=== PATIENT | female | born 1945 | race Caucasian/White ===

== ENCOUNTER 2018-10-12 04:10 | Inpatient (IN) ==
[2018-10-12] MEDS ORDERED: HYDROmorphone INJ 0.5 MG/0.5 ML SYR IV STA (04:32)
[2018-10-12 05:00] LABS: Basophils # (auto) 0.01 K/uL (0-0.2); Basophils % (auto) 0.1 %; Eosinophils # (auto) 0.01 K/uL (0-0.5); Eosinophils % (auto) 0.1 %; Hematocrit (blood only) 45.2 % (37-47); Hemoglobin 15.8 g/dL (12.0-16.0); Immature Granulocytes # (auto) 0.06 K/uL (0.00-0.02); Immature Granulocytes % (auto) 0.3 %; Lymphocytes # (auto) 1.69 K/uL (1.2-3.4); Lymphocytes % (auto) 8.8 %; Mean Corpuscular Volume 91.5 fL (80-100); Mean Platelet Volume 10.8 fL (7.4-10.4); Monocytes # (auto) 0.96 K/uL (0.11-0.59); Neutrophils # (auto) 16.43 K/uL (1.4-6.5); Neutrophils % (auto) 85.7 %; Platelet Count 293 K/uL (130-400); RDW Coefficient of Variation 13.2 % (11.5-14.5); Red Blood Count 4.94 M/uL (4.2-5.4); White Blood Count 19.16 K/uL (4.8-10.8)
[2018-10-12 05:11] LABS: Appearance Urine Cloudy (Clear); Bacteria Urine Automated Negative (Negative); Color Urine Dark Yellow; Epithelial Cell Urine Auto >30 /lpf (0-5); Glucose Urine UA Negative (Negative); Ketones Urine Negative (Negative); Leukocyte Esterase Urine Trace (Negative); Nitrite Urine Negative (Negative); Protein Urine 1+ (Negative); Specific Gravity Urine > 1.045 (1.000-1.030); Urobilinogen Urine Negative (Negative)
[2018-10-12 05:17] LABS: Bilirubin Urine Negative (Negative); Ictotest Urine Negative (Negative)
[2018-10-12 05:28] LABS: Albumin Level 4.1 gm/dl (3.4-5.0); BUN Creatinine Ratio 21.3 (10-20); Creatinine Clr Calc Pharmacy 44.4 ml/min; Est GFR (African American) 52.2; Est GFR (Non-African American) 45.1; Potassium 4.7 mmol/L (3.5-5.1)
[2018-10-12] MEDS ORDERED: SODIUM CHLORIDE 0.9% 1000ML 1,000 ML IV SCH (05:30)
[2018-10-12 05:31] LABS: Albumin Globulin Ratio 0.9 (0.9-2); Bilirubin,Total 0.9 mg/dl (0.2-1); Globulin 4.6 gm/dl (2.5-4.0); Total Protein 8.7 gm/dl (6.4-8.2)
[2018-10-12] MEDS ORDERED: fentaNYL citrate 100 MCG/2 ML VIAL IV STA (05:31)
--- NOTE | 2018-10-12 06:15 | History & Physical Report ---
Date of Service October 12, 2018 Assessment & Plan (1) Small bowel obstruction: Recurrent partial small bowel obstruction-- Admit to telemetry due to need for IV Lopressor. NPO. IV fluids NSS at 100 mils per hour. Zofran 4 mg IV every 6 hours as needed. Zosyn 3.375 mg IV every 8 hours. Pantoprazole 40 mg IV daily. Acetaminophen 1000 mg IV every 8 hours as needed mild pain or temperature Morphine sulfate 2 mg IV every 3 hours as needed severe pain Present on Admission?: Yes (2) CAD (coronary artery disease): CAD/hypertension/hypertrophic cardiomyopathy-- Admit to telemetry unit. Lopressor 5 mg IV every 4 hours, hold for heart rate less than 60 or systolic blood pressure less than 120. Hold aspirin, clopidogrel and metoprolol succinate. Present on Admission?: Yes (3) HTN (hypertension): As above Present on Admission?: Yes (4) Hypertrophic cardiomyopathy: Present on Admission?: Yes History of Present Illness Chief Complaint: The patient presents to the emergency department with worsening right lower quadrant abdominal pain over the past 24 hours. Primary Care Provider: Charo Chatterjee PA-C The patient is a 73-year-old female with a past medical history including recurrent partial small bowel obstructions, with most recent admission at [facility] from August 04 - August 05, resolved spontaneously with conservative treatment. These symptoms began yesterday morning upon awakening. She tried to restrict her oral intake significantly to both liquids and solids, however, overnight tonight, her symptoms worsened, and she presented to the emergency department for assessment. Allergies Allergy/AdvReac Type Severity Reaction Status Date / Time codeine AdvReac Mild CHEST Verified 10/12/18 04:52 PRESSURE Home Medications Home Medications Medication Instructions Recorded Confirmed Type allopurinol 100 mg PO DAILY 08/04/18 10/12/18 History aspirin 81 mg PO DAILY 08/04/18 10/12/18 History atorvastatin [Lipitor] 40 mg PO DAILY 08/04/18 10/12/18 History metoprolol succinate 25 mg PO BID 08/04/18 10/12/18 History metoprolol succinate 100 mg PO BID 08/04/18 10/12/18 History multivitamin [Multiple Vitamins] 1 tab PO DAILY 08/04/18 10/12/18 History clopidogrel 75 mg PO QAM #30 tab 08/06/18 10/12/18 Rx diclofenac sodium [Voltaren] 1 applic EXT QID #1 tube 08/06/18 10/12/18 Rx Past Med/Surg History Social History marital status: Current Living Situation: Spouse Feels Safe at Home: Yes Smoking Status: Never smoker Second Hand Exposure: No Hx Alcohol Use: No Hx Substance Use: No Beliefs That Will Affect Care: None Preferred Language: [place] Review of Systems The patient denies chest pain, palpitations, shortness of breath, dyspnea on exertion, cough, lower extremity swelling, sore throat, fevers, chills, sweats, vomiting, diarrhea , constipation, blood in urine or stool, dysuria, urinary frequency or urgency, lightheadedness, dizziness, headache, memory loss, loss of consciousness, rash, abnormal bruising or bleeding, imbalance, focal or generalized weakness, numbness or tingling in arms or legs, generalized arthralgias or myalgias, back or neck pain, or night sweats. The review of systems is otherwise negative other than for that already noted above, and at least 10 systems have been reviewed. Physical Exam 2 Vital Signs (Past 24 Hours): Last Vital Signs Temp 36.4 C L 10/12/18 04:14 Pulse 75 10/12/18 05:44 Resp 16 10/12/18 05:44 BP 113/93 10/12/18 05:44 Pulse Ox 93 10/12/18 05:44 Physical Exam: The patient is awake, alert and oriented �3, normocephalic and atraumatic, lying in bed and in mild distress secondary to right lower quadrant pain. HEENT--PERRL, EOMI, mucous membranes and oropharynx dry. Neck--supple. No JVD. No bruits. Thyroid normal, trachea midline, no adenopathy. Heart--normal S1 and S2. No murmurs, rubs or gallops. Lungs--clear bilaterally, no respiratory distress, no accessory muscle use. Abdomen--decreased bowel sounds. Mildly distended. Tender right lower and right lateral quadrants. Extremities--no cyanosis or clubbing. No edema. There are good distal pulses b/ l. Dermatologic--normal skin turgor, normal color, no abnormal lymph nodes, no rash. Neurologic--cranial nerves II through XII grossly intact. Rheumatologic--normal range of motion. Psychiatric--normal affect. Results & Data Laboratory Results Laboratory Results WBC 19.16 K/uL (4.8-10.8) H 10/12/18 04:50 RBC 4.94 M/uL (4.2-5.4) 10/12/18 04:50 Hgb 15.8 g/dL (12.0-16.0) 10/12/18 04:50 Hct 45.2 % (37-47) 10/12/18 04:50 MCV 91.5 fL (80-100) 10/12/18 04:50 MCH 32.0 pg (25-34) 10/12/18 04:50 MCHC 35.0 g/dL (32-36) 10/12/18 04:50 RDW Std Deviation 44.0 fL (36.4-46.3) 10/12/18 04:50 RDW Coeff of Saundra 13.2 % (11.5-14.5) 10/12/18 04:50 Plt Count 293 K/uL (130-400) 10/12/18 04:50 MPV 10.8 fL (7.4-10.4) H 10/12/18 04:50 Immature Gran % (Auto) 0.3 % 10/12/18 04:50 Neut % (Auto) 85.7 % 10/12/18 04:50 Lymph % (Auto) 8.8 % 10/12/18 04:50 [place] % (Auto) 5.0 % 10/12/18 04:50 Eos % (Auto) 0.1 % 10/12/18 04:50 Baso % (Auto) 0.1 % 10/12/18 04:50 Immature Gran # (Auto) 0.06 K/uL (0.00-0.02) H 10/12/18 04:50 Neut # (Auto) 16.43 K/uL (1.4-6.5) H 10/12/18 04:50 Lymph # (Auto) 1.69 K/uL (1.2-3.4) 10/12/18 04:50 [place] # (Auto) 0.96 K/uL (0.11-0.59) H 10/12/18 04:50 Eos # (Auto) 0.01 K/uL (0-0.5) 10/12/18 04:50 Baso # (Auto) 0.01 K/uL (0-0.2) 10/12/18 04:50 Sodium 135 mmol/L (136-145) L 10/12/18 04:50 Potassium 4.7 mmol/L (3.5-5.1) 10/12/18 04:50 Chloride 99 mmol/L (98-107) 10/12/18 04:50 Carbon Dioxide 26 mmol/L (21-32) 10/12/18 04:50 Anion Gap 10.0 (3-11) 10/12/18 04:50 BUN 25 mg/dl (7-18) H 10/12/18 04:50 Creatinine 1.18 mg/dl (0.6-1.2) 10/12/18 04:50 Est Cr Clr Drug Dosing 44.4 ml/min 10/12/18 04:50 Est GFR ( Amer) 52.2 10/12/18 04:50 Est GFR (Non-Af Amer) 45.1 10/12/18 04:50 BUN/Creatinine Ratio 21.3 (10-20) H 10/12/18 04:50 Glucose 133 mg/dl (70-99) H 10/12/18 04:50 Calcium 10.0 mg/dl (8.5-10.1) 10/12/18 04:50 Total Bilirubin 0.9 mg/dl (0.2-1) 10/12/18 04:50 AST 23 U/L (15-37) 10/12/18 04:50 ALT 29 U/L (12-78) 10/12/18 04:50 Alkaline Phosphatase 91 U/L (45-117) 10/12/18 04:50 Total Protein 8.7 gm/dl (6.4-8.2) H 10/12/18 04:50 Albumin 4.1 gm/dl (3.4-5.0) 10/12/18 04:50 Globulin 4.6 gm/dl (2.5-4.0) H 10/12/18 04:50 Albumin/Globulin Ratio 0.9 (0.9-2) 10/12/18 04:50 Lipase 156 U/L (73-393) 10/12/18 04:50 Urine Color Dark Yellow 10/12/18 05:03 Urine Appearance Cloudy (Clear) H 10/12/18 05:03 Urine pH 5.0 (4.5-7.5) 10/12/18 05:03 Ur Specific [place] > 1.045 (1.000-1.030) H 10/12/18 05:03 Urine Protein 1+ (Negative) H 10/12/18 05:03 Urine Glucose (UA) Negative (Negative) 10/12/18 05:03 Urine Ketones Negative (Negative) 10/12/18 05:03 Urine Blood Negative (Negative) 10/12/18 05:03 Urine Nitrite Negative (Negative) 10/12/18 05:03 Urine Bilirubin Negative (Negative) 10/12/18 05:03 Urine Urobilinogen Negative (Negative) 10/12/18 05:03 Ur Leukocyte Esterase Trace (Negative) H 10/12/18 05:03 Urine WBC (Auto) 10-30 /hpf (0-5) H 10/12/18 05:03 Urine RBC (Auto) 0-4 /hpf (0-4) 10/12/18 05:03 U Hyaline Cast (Auto) 10-30 /lpf (0-5) H 10/12/18 05:03 U Epithel Cells (Auto) >30 /lpf (0-5) H 10/12/18 05:03 Urine Bacteria (Auto) Negative (Negative) 10/12/18 05:03 Diagnostic Findings Portable KUB abdominal flatplate shows changes suggestive of partial small bowel obstruction. Code Status & VTE Plan Code Status Full code VTE Prophylaxis Plan VTE Prophylaxis will be ordered: Yes
--- NOTE | 2018-10-12 06:52 | XRay Report ---
XR abdomen 2V w PA chest CLINICAL HISTORY: Abdominal pain. Symptoms of small bowel obstruction. COMPARISON STUDY: CT scan dated 08/03/2018 FINDINGS: The erect chest reveals no free air. There is no focal pulmonary consolidation. There is a left subclavian dual-chamber pacer/defibrillator.] Supine views the abdomen reveal postsurgical lance es are prior cholecystectomy. There are minimally dilated small bowel loops. There are multiple air-f luid levels on the erect study. Nonobstructive bowel gas pattern although not definite is suspected. There is a left upper quadrant eggshell calcification corresponding to a calcified cystic splenic les ion on the prior CT scan. IMPRESSION: Suspected bowel obstruction. Clinical and radiographic follow-up is recommended. No free air identified. Electronically signed by: Andrew Calderon M.D. 10/12/2018 6:50 AM
[2018-10-12] MEDS ORDERED: PIPERACILL/TAZOBAC CONSULT ACTIVE PRN (07:01)
[2018-10-12] MEDS ORDERED: ACETAMINOPHEN 1000 MG/100 ML IV IV PRN (07:01)
[2018-10-12] MEDS ORDERED: MoRPHine SULFATE 2 MG/ML CARP IV PRN (07:01)
[2018-10-12] MEDS ORDERED: PANTOprazole 40 MG in DEXTROSE 5% 100 ML IV SCH (07:01)
[2018-10-12] MEDS ORDERED: PANTOprazole 80 MG in DEXTROSE 5% 100 ML IV ONE (07:01)
--- NOTE | 2018-10-12 07:02 | Emergency Department Note ---
Entered by Alejandro De Luna acting as a scribe for History of Present Illness General Chief complaint: Abdominal Pain Stated complaint: STOMACH PAIN Time Seen by Provider: 10/12/18 04:22 Source: patient History of Present Illness Onset (ago): day(s) (yesterday morning) Location: abdomen (right-sided) Pain Consistency: + other (worsening) Maximum Pain Intensity: 8 Associated symptoms: + other (Negative for nausea, vomiting, diarrhea, and difficulty urinating.) The patient is a 73 year old female who presents to the emergency department with complaints of worsening right-sided abdominal pain beginning yesterday morning. The patient states that her pain was not bad when it started yesterday , but she notes that it worsened throughout the day. She denies any nausea, vomiting, diarrhea, and difficulty urinating. She reports that she has a history of bowel obstructions. The patient states that her bowel obstructions have resolved on their own and she notes that she did not require surgery. She notes that she has had part of her colon removed due to diverticulitis. Home Medications Home Medications Medication Instructions Recorded Confirmed Type allopurinol 100 mg PO DAILY 08/04/18 10/12/18 History aspirin 81 mg PO DAILY 08/04/18 10/12/18 History atorvastatin [Lipitor] 40 mg PO DAILY 08/04/18 10/12/18 History metoprolol succinate 25 mg PO BID 08/04/18 10/12/18 History metoprolol succinate 100 mg PO BID 08/04/18 10/12/18 History multivitamin [Multiple Vitamins] 1 tab PO DAILY 08/04/18 10/12/18 History clopidogrel 75 mg PO QAM #30 tab 08/06/18 10/12/18 Rx diclofenac sodium [Voltaren] 1 applic EXT QID #1 tube 08/06/18 10/12/18 Rx Allergies Allergy/AdvReac Type Severity Reaction Status Date / Time codeine AdvReac Mild CHEST Verified 10/12/18 04:52 PRESSURE Past Med/Surg History Social History marital status: Current Living Situation: Spouse Other Information That Helps Us Care for You: No Feels Safe at Home: Yes Safety Concerns: Feels Safe At This Time Smoking Status: Never smoker Do You Dip or Chew Tobacco: No Second Hand Exposure: No Tobacco Cessation Education Requested by Patient: No Hx Alcohol Use: No Hx Substance Use: No Beliefs That Will Affect Care: None Preferred Language: Lao Communication Ability: Effective Program Attendant Required: No Review of Systems See HPI for pertinent positives & negatives. and A total of 10 systems reviewed and were otherwise negative Physical Exam Vital Signs Vital Signs - 24 hr 10/12/18 04:14 10/12/18 04:32 10/12/18 05:44 Temperature 36.4 C L Temperature Source Oral Sepsis Recent Fever Within 48 Hours No Sepsis Action Taken by Nursing No Action Required Pulse Rate 79 75 Pulse Rate [Left Radial] Pulse Rhythm [Left Radial] Pulse Strength [Left Radial] Respiratory Rate 18 16 Respiratory Effort / Characteristics Non-Labored Respiratory Depth Normal Respiratory Pattern Blood Pressure 147/88 H 113/93 Blood Pressure [Right Arm] Blood Pressure Mean 107 99 Blood Pressure Mean [Right Arm] Blood Pressure Position Sitting Blood Pressure Position [Right Arm] Pulse Oximetry 96 96 93 Oxygen Delivery Method Room Air Room Air 10/12/18 06:07 10/12/18 06:11 10/12/18 06:16 Temperature Temperature Source Sepsis Recent Fever Within 48 Hours Sepsis Action Taken by Nursing Pulse Rate 76 71 Pulse Rate [Left Radial] 71 Pulse Rhythm [Left Radial] Regular Pulse Strength [Left Radial] Normal Respiratory Rate 15 16 15 Respiratory Effort / Characteristics Non-Labored Respiratory Depth Normal Respiratory Pattern Regular Blood Pressure 135/89 121/80 Blood Pressure [Right Arm] 135/89 Blood Pressure Mean 104 93 Blood Pressure Mean [Right Arm] 104 Blood Pressure Position Blood Pressure Position [Right Arm] Lying Pulse Oximetry 92 93 91 Oxygen Delivery Method Room Air 10/12/18 06:29 Temperature Temperature Source Sepsis Recent Fever Within 48 Hours Sepsis Action Taken by Nursing Pulse Rate Pulse Rate [Left Radial] Pulse Rhythm [Left Radial] Pulse Strength [Left Radial] Respiratory Rate Respiratory Effort / Characteristics Respiratory Depth Respiratory Pattern Blood Pressure Blood Pressure [Right Arm] Blood Pressure Mean Blood Pressure Mean [Right Arm] Blood Pressure Position Blood Pressure Position [Right Arm] Pulse Oximetry Oxygen Delivery Method Room Air HEENT: Head - normocephalic and atraumatic Pupils are equal, round, and reactive to light. Extraocular eye muscles are intact, and sclera are anicteric. Nose - moist nasal mucosa without discharge. Mouth - moist buccal mucosa. Oropharynx is nonerythematous and there is no tonsillar exudate or edema noted. Neck: Supple; no JVD, nuchal rigidity, cervical lymphadenopathy. Heart: Regular rate and rhythm. There is a normal S1 and S2 with no murmurs, clicks, or gallops appreciated. Lungs: Clear to auscultation bilaterally with no wheezes, rales, or rhonchi. Abdomen: Soft, nondistended, with absent bowel sounds. There are no palpable pulsatile masses or hepatosplenomegaly. There is no guarding, rigidity, or rebound noted. Pain with palpation of right upper and right lower quadrants. Extremities: No evidence of cyanosis, clubbing, or edema. There are easily palpable peripheral pulses. Skin: warm and dry with good turgor and no rashes. Course 0422: The patient was evaluated in room C8. A complete history and physical examination were performed. Nursing notes and previous electronic medical records were reviewed. IV lock was established and labs were drawn as above. The patient will go for an obstruction series. She had an EKG which was unremarkable. 0510: I reevaluated and updated the patient. I ordered Dilaudid for her pain. 0517: The patient is concerned about taking Dilaudid and will receive Fentanyl instead. The patient has a previous allergy to codeine. I reviewed the EMR and the patient has not had any adverse reactions to Fentanyl. 0530: Nss 1000ml 1000 mls @ 125 mls/hr IV 0531: Fentanyl Citrate 50mcg IV 0610: Upon reevaluation, the patient is stable. I discussed the results and treatment plan with the patient. She verbalizes understanding and agreement. I discussed the patient's case with AMANDA Garcia. The patient will be evaluated for further management and care. Consultations Consultation #1: I reviewed the patient's case with AMANDA Garcia. He will evaluate the patient for further management. Time: 05:55 Administered Medications Discontinued Medications Fentanyl Citrate (Fentanyl Citrate) 50 mcg IV NOW STA Stop: 10/12/18 05:32 Last Admin: 10/12/18 05:41 Dose: 50 mcg Hydromorphone HCl (Dilaudid) 0.5 mg IV NOW STA Stop: 10/12/18 04:33 Last Admin: 10/12/18 05:44 Dose: Not Given Medical Decision Making Differential Diagnosis The patient is a 73 year old female who presents to the emergency department with complaints of worsening right-sided abdominal pain beginning yesterday morning. Differential diagnoses include: SBO, diverticulitis, colitis, and cystitis. Medical Records Attestation: I reviewed the patient's medical records. Home Medications Current Medication List: was personally reviewed by me Laboratory Data Attestation: I reviewed the patient's lab results. Result diagrams: 10/12/18 04:50 10/12/18 04:50 Lab Results 10/12/18 10/12/18 10/12/18 Range/Units 04:50 04:50 05:03 WBC 19.16 H (4.8-10.8) K/uL RBC 4.94 (4.2-5.4) M/uL Hgb 15.8 (12.0-16.0) g/dL Hct 45.2 (37-47) % MCV 91.5 (80-100) fL MCH 32.0 (25-34) pg MCHC 35.0 (32-36) g/dL RDW Std Deviation 44.0 (36.4-46.3) fL RDW Coeff of Saundra 13.2 (11.5-14.5) % Plt Count 293 (130-400) K/uL MPV 10.8 H (7.4-10.4) fL Immature Gran % (Auto) 0.3 % Neut % (Auto) 85.7 % Lymph % (Auto) 8.8 % [place] % (Auto) 5.0 % Eos % (Auto) 0.1 % Baso % (Auto) 0.1 % Immature Gran # (Auto) 0.06 H (0.00-0.02) K/uL Neut # (Auto) 16.43 H (1.4-6.5) K/uL Lymph # (Auto) 1.69 (1.2-3.4) K/uL [place] # (Auto) 0.96 H (0.11-0.59) K/uL Eos # (Auto) 0.01 (0-0.5) K/uL Baso # (Auto) 0.01 (0-0.2) K/uL Sodium 135 L (136-145) mmol/L Potassium 4.7 (3.5-5.1) mmol/L Chloride 99 (98-107) mmol/L Carbon Dioxide 26 (21-32) mmol/L Anion Gap 10.0 (3-11) BUN 25 H (7-18) mg/dl Creatinine 1.18 (0.6-1.2) mg/dl Est Cr Clr Drug Dosing 44.4 ml/min Est GFR ( Amer) 52.2 Est GFR (Non-Af Amer) 45.1 BUN/Creatinine Ratio 21.3 H (10-20) Glucose 133 H (70-99) mg/dl Calcium 10.0 (8.5-10.1) mg/dl Total Bilirubin 0.9 (0.2-1) mg/dl AST 23 (15-37) U/L ALT 29 (12-78) U/L Alkaline Phosphatase 91 (45-117) U/L Total Protein 8.7 H (6.4-8.2) gm/dl Albumin 4.1 (3.4-5.0) gm/dl Globulin 4.6 H (2.5-4.0) gm/dl Albumin/Globulin Ratio 0.9 (0.9-2) Lipase 156 (73-393) U/L Urine Color Dark Yellow Urine Appearance Cloudy H (Clear) Urine pH 5.0 (4.5-7.5) Ur Specific [place] > 1.045 H (1.000-1.030) Urine Protein 1+ H (Negative) Urine Glucose (UA) Negative (Negative) Urine Ketones Negative (Negative) Urine Blood Negative (Negative) Urine Nitrite Negative (Negative) Urine Bilirubin Negative (Negative) Urine Urobilinogen Negative (Negative) Ur Leukocyte Esterase Trace H (Negative) Urine WBC (Auto) 10-30 H (0-5) /hpf Urine RBC (Auto) 0-4 (0-4) /hpf U Hyaline Cast (Auto) 10-30 H (0-5) /lpf U Epithel Cells (Auto) >30 H (0-5) /lpf Urine Bacteria (Auto) Negative (Negative) Imaging Data Attestation: I personally reviewed and interpreted this imaging study as follows : My Impression: 2 VIEW ABDOMEN X-RAY: Obstruction Series. No free air under diaphragm. Multiple air fluid levels concerning for SBO. ECG Data Attestation: I personally reviewed and interpreted this ECG as follows: Indication: abdominal pain Rate (beats per minute): 79 Rhythm: normal sinus Findings: + T-wave inversion (in lead 1 and AVL) Comparison ECG Date: from (10/31/2014) Change: no significant change Blood Pressure Blood Pressure Findings: Normal blood pressure Blood Pressure Disposition: did not require urgent referral MDM Narrative The patient is a 73 year old female who presents to the emergency department with complaints of worsening right-sided abdominal pain beginning yesterday morning. The patient has a history of previous small bowel obstructions. She developed increasing right-sided abdominal pain last evening. Obstruction series shows evidence of use air-fluid levels consistent with a small bowel obstruction. The patient had no nausea or vomiting and therefore I did not place an NG tube. Her vital signs were stable. Her pain was controlled with the fentanyl. I discussed the case with the [facility] Hospitalist and they will evaluate for further management. Impression & Plan Small bowel obstruction Discharge Plan Visit Data Chief Complaint: Abdominal Pain Stated Complaint: STOMACH PAIN ED Provider: Angie Lockwood Discharge Problem: Small bowel obstruction Patient Disposition: Admitted As Inpatient Discharge Instructions Interventions: ED Discharge Assessment Last Done: 10/12/18 06:29 The supaibe's documentation has been prepared under my direction and personally reviewed by me in its entirety. I confirm that the note above accurately reflects all work, treatment, procedures, and medical decision making performed by me.
[2018-10-12] MEDS: SODIUM CHLORIDE 0.9% 1000ML 1,000 ML IV SCH ×2 (07:41→20:46)
[2018-10-12] MEDS ORDERED: PIPERACILLIN/TAZOBACTAM 3.375 GM in DEXTROSE 5% 100 ML IV SCH (08:00)
[2018-10-12] MEDS: HEPARIN SOD 5,000 UNIT/0.5 ML VIAL SQ SCH ×2 (08:00→22:41)
[2018-10-12] MEDS: METOPROLOL TARTRATE 1 MG/ML VIAL IV SCH ×3 (08:00→17:07)
[2018-10-12 08:21] LABS: INR 1.1 (0.9-1.1); Prothrombin Time 10.6 Seconds (9.0-12.0)
[2018-10-12] MEDS: ONDANSETRON INJ 2 MG/ML 2 ML VIAL IV PRN ×2 (10:12→17:59)
[2018-10-12] MEDS: HYDROmorphone INJ 0.5 MG/0.5 ML SYR IV PRN ×3 (11:54→22:40)
[2018-10-12] MEDS: PANTOprazole 40 MG in SYRINGE 0 ML IV SCH (11:55)
[2018-10-12] MEDS: PIPERACILLIN/TAZOBACTAM 3.375 GM in DEXTROSE 5% 100 ML IV SCH ×2 (13:52→22:41)
[2018-10-12] MEDS ORDERED: KETOROLAC TROMETHAMINE 15 MG/ML VIAL IV ONE (17:33)
[2018-10-12] MEDS ORDERED: PROMETHAZINE HCL 12.5 MG in SODIUM CHLORIDE 0.9% 50 ML IV PRN (17:39)
--- NOTE | 2018-10-12 18:27 | Hospitalist Progress Note ---
Date of Service October 12, 2018 Assessment & Plan (1) Small bowel obstruction: - XR with suspected SBO but not definitive - clinically without flatus and emesis x 2 - Pain largely in RUQ with some transition into epigastric region later in the day - She has a leukocytosis of 19 and a history of diverticulitis with resection - will obtain CT to further assess abdomen - Keep NPO; discussed NGT placement due to emesis but she would like to wait - has only had about 2 episodes of dark bile-like emesis but will likely need to place an NGT if continues - Continue fluids with NSS at 80 mL/hr - Dilaudid PRN; Zofran/Phenergan PRN - Continue Zosyn Q8H Present on Admission?: Yes (2) CAD (coronary artery disease): - Currently stable; no acute ischemic findings/symptoms - Holding ASA/Plavix at this time Present on Admission?: Yes (3) HTN (hypertension): - Medications on hold at this time given NPO Present on Admission?: Yes (4) Hypertrophic cardiomyopathy: - No current signs of decompensation and will monitor - Holding Toprol XL at this time - can likely add this orally if needed and will monitor Present on Admission?: Yes Subjective Continues to have RUQ abdominal pain that wax and wanes. Had multiple visits throughout the day with her. Pain largely in the RUQ but is moving to the epigastric region as well. She has had about 2 episodes of emesis that is dark brown/bile like She also has a leukocytosis of 19. KUB was not that convincing for a SBO and will order a CT to further evaluate Last BM was yesterday but is not passing flatus at this point. Pain is better controlled with Dilaudid. Was switched due to some emesis after morphine administration. She would like to avoid NGT if possible and will hold on this for now but did discuss this may need to be inserted if emesis continues Constitutional: + fatigue and + anorexia; no fever and no chills Ear, Nose, Mouth, Throat: + dry mouth; no dysphagia Respiratory: no dyspnea Cardiovascular: no chest pain Gastrointestinal: + abdominal pain, + bloating, + nausea and + vomiting; no constipation and no diarrhea/loose stools Genitourinary (Female): no dysuria Integumentary: no rash Physical Exam 2 Vital Signs (Past 24 Hours): Last Vital Signs Temp 36.6 C 10/12/18 15:13 Pulse 85 10/12/18 17:07 Resp 16 10/12/18 15:13 BP 132/82 10/12/18 17:07 Pulse Ox 92 10/12/18 15:13 Constitutional: well developed, well nourished and + ill appearing; no acute distress Eyes: + anicteric sclerae ENMT: Throat: uvula midline; no posterior oropharynx abnormality Neck: trachea midline Respiratory: normal respiratory effort, lungs clear to auscultation Cardiovascular: Rate/Rhythm: regular rate and regular rhythm Extremities: no edema Gastrointestinal (Abdomen): Inspection/Auscultation: + abnormal bowel sounds ( hypoactive but slightly increasing in RLQ on subsequent examination) Musculoskeletal: Head/Neck/Chest: normocephalic, head atraumatic and neck supple Skin: no rashes, warm and dry Neurologic: moves all extremities Psychiatric: A+Ox3, euthymic affect
--- NOTE | 2018-10-12 18:43 | CT Scan Report ---
CT SCAN OF THE ABDOMEN AND PELVIS WITHOUT IV CONTRAST CLINICAL HISTORY: Right upper quadrant abdominal pain. COMPARISON STUDY: Abdominal CT dated 08/03/2018. Abdominal radiographs dated 10/12/2018. TECHNIQUE: CT scan of the abdomen and pelvis is performed from the lung bases to the proximal femora. Images are reviewed in the axial, sagittal, and coronal planes. IV contrast was not administered for this examination as per the referring clinician. Note that the examination was performed in suboptim al fashion without oral and IV contrast. A dose lowering technique was utilized adhering to the princ iples of [place]. CT DOSE: 896.57 mGy.cm FINDINGS: Lung bases: The heart is normal in size and without pericardial effusion. Pacemaker leads are noted. The mitral annulus is densely calcified. The lung bases are clear. Liver: The unenhanced liver is normal in size, contour, and attenuation. There is minimal central int rahepatic biliary ductal dilatation. There are numerous calcified hepatic granulomas. Gallbladder: Surgically absent noting clips in the gallbladder fossa. Spleen: Normal in size and attenuation. There are numerous calcified splenic granulomas. A 2 cm perip herally calcified structure in the anterior spleen on image #81 is unchanged from previous and of vane btful significance. Pancreas: The unenhanced pancreas is mildly atrophic and grossly unremarkable. Adrenal glands: Unremarkable. Kidneys: The unenhanced kidneys are atrophic and without hydronephrosis. There are no renal calculi i dentified. There is no evidence of contour deforming renal mass lesion. Abdominal vasculature: The abdominal aorta is normal in course and caliber noting moderate atheroscle rotic calcification. Bowel: There are postoperative changes from subtotal colectomy with ileocolic anastomosis at the leve l of the sigmoid. The small bowel loops are distended and fluid-filled, measuring up to 4.5 cm in melissa meter. There is a transition point identified in the ventral left pelvis on image #352. The distal sm all bowel loops are decompressed, and the appearance is consistent with a small bowel obstruction. Th e distal small bowel appears fecalized. There is no pneumatosis intestinalis or portal venous gas. No focally thick walled bowel loops are identified. Trace interloop fluid is identified in the right lo wer quadrant. There are scattered diverticula of the remaining sigmoid colon without CT evidence of a cute diverticulitis. Peritoneum: There is no intraperitoneal free air or abdominal ascites. There is a small fat-containin g supraumbilical hernia seen on image #165. There is a fat-containing umbilical hernia with evidence of previous hernia repair. Lymphadenopathy: None. Pelvic viscera: The bladder is decompressed and grossly unremarkable. The uterus is surgically absent . No adnexal lesion is seen. Skeletal structures: The skeletal structures are osteopenic. There is mild to moderate lumbosacral sp ondylosis. No lytic or blastic lesions are seen. IMPRESSION: 1. Suboptimal examination without oral and IV contrast. 2. There are postoperative changes from subtotal colectomy with ileocolic anastomosis involving the s igmoid 3. Findings are consistent with a small bowel obstruction. A transition point is identified involving a distal small bowel loop in the left ventral pelvis, and this is likely on the basis of adhesions. 4. There is trace interloop fluid identified in the right lower quadrant. No intraperitoneal free air is seen. There is no pneumatosis intestinalis, portal venous gas, or focal thick walled bowel loop i dentified. 5. Additional findings as above. Electronically signed by: Grant Choi M.D. 10/12/2018 6:41 PM
[2018-10-12] MEDS ORDERED: CHLORASEPTIC 1.4% SOLN 180 ML BTL MT PRN (19:14)
[2018-10-12] MEDS ORDERED: LORazepam 0.25 MG/0.5 ML VIAL IV PRN (19:14)
[2018-10-12] MEDS: DICLOFENAC SOD 1% GEL 100 GM TUBE EXT SCH ×3 (19:47→22:42)
[2018-10-13] MEDS: HYDROmorphone INJ 0.5 MG/0.5 ML SYR IV PRN ×3 (03:51→13:07)
[2018-10-13] MEDS: PIPERACILLIN/TAZOBACTAM 3.375 GM in DEXTROSE 5% 100 ML IV SCH (05:16)
[2018-10-13] MEDS: ONDANSETRON INJ 2 MG/ML 2 ML VIAL IV PRN (05:20)
[2018-10-13 08:29] LABS: Basophils # (auto) 0.01 K/uL (0-0.2); Basophils % (auto) 0.1 %; Hematocrit (blood only) 44.4 % (37-47); Hemoglobin 15.5 g/dL (12.0-16.0); Immature Granulocytes # (auto) 0.02 K/uL (0.00-0.02); Immature Granulocytes % (auto) 0.2 %; Lymphocytes # (auto) 1.49 K/uL (1.2-3.4); Lymphocytes % (auto) 17.8 %; Mean Corpuscular Hgb Conc 34.9 g/dL (32-36); Mean Corpuscular Volume 92.1 fL (80-100); Mean Platelet Volume 10.9 fL (7.4-10.4); Monocytes # (auto) 1.38 K/uL (0.11-0.59); Monocytes % (auto) 16.5 %; Neutrophils # (auto) 5.48 K/uL (1.4-6.5); Neutrophils % (auto) 65.4 %; Platelet Count 286 K/uL (130-400); RDW Coefficient of Variation 13.3 % (11.5-14.5); RDW Standard Deviation 45.3 fL (36.4-46.3); Red Blood Count 4.82 M/uL (4.2-5.4); White Blood Count 8.38 K/uL (4.8-10.8)
[2018-10-13] MEDS: SODIUM CHLORIDE 0.9% 1000ML 1,000 ML IV SCH ×2 (08:36→22:10)
[2018-10-13 08:37] LABS: INR 1.1 (0.9-1.1); Partial Thromboplastin Ratio 1.1; Partial Thromboplastin Time 27.4 Seconds (21.0-31.0); Prothrombin Time 11.5 Seconds (9.0-12.0)
[2018-10-13] MEDS: HEPARIN SOD 5,000 UNIT/0.5 ML VIAL SQ SCH ×2 (08:37→22:14)
[2018-10-13] MEDS: DICLOFENAC SOD 1% GEL 100 GM TUBE EXT SCH ×4 (08:37→22:08)
[2018-10-13 08:52] LABS: Albumin Level 3.4 gm/dl (3.4-5.0); BUN Creatinine Ratio 27.7 (10-20); Calcium 9.5 mg/dl (8.5-10.1); Creatinine Clr Calc Pharmacy 36.9 ml/min; Est GFR (African American) 41.8; Potassium 4.1 mmol/L (3.5-5.1)
[2018-10-13 08:55] LABS: Albumin Globulin Ratio 0.8 (0.9-2); Globulin 4.3 gm/dl (2.5-4.0); Total Protein 7.7 gm/dl (6.4-8.2)
[2018-10-13] MEDS: METOPROLOL SUCC 50MG EXT REL TAB PO SCH ×2 (09:51→22:10)
[2018-10-13] MEDS: PANTOprazole 40 MG in SYRINGE 0 ML IV SCH (11:09)
[2018-10-13] MEDS: PIPERACILLIN/TAZOBACTAM 4.5 GM in DEXTROSE 5% 100 ML IV SCH ×2 (13:45→22:18)
[2018-10-13] MEDS ORDERED: HYDROmorphone INJ 1 MG/ML SYRINGE IV PRN (16:47)
--- NOTE | 2018-10-13 16:56 | Surgery Consultation ---
Date of Consultation October 13, 2018 Assessment & Plan (1) SBO (small bowel obstruction): I do believe the patient should have an NG tube for decompression and I have discussed this with the patient and her family. If she does not improve over the next 24-48 hours she may need a laparotomy possible bowel resection. She has been on Plavix and is at risk for bleeding. History of Present Illness Attending Physician: Fito Yan DO History of Present Illness Patient admitted yesterday through the emergency room with aaron pain nausea and vomiting with persistent symptoms and CAT scan today showing dilated small bowel likely at least a partial small bowel obstruction. Patient has a significant history of colon resection for diverticulitis. She had recurrent diverticulitis in 2007 requiring a subtotal colectomy with ileorectal anastomosis. She has had intermittent symptoms with some hospitalizations over the last 10 years. She does not have an NG tube in place at the present time. Her white blood cell count has come from 19,000 down to 8.3 she does show signs of dehydration with UN and creatinine of 39/1.4 Currently she does have some intermittent crampy abdominal pain. Allergies Allergy/AdvReac Type Severity Reaction Status Date / Time codeine AdvReac Mild CHEST Verified 10/12/18 04:52 PRESSURE Home Medications Home Medications Medication Instructions Recorded Confirmed Type allopurinol 100 mg PO DAILY 08/04/18 10/12/18 History aspirin 81 mg PO DAILY 08/04/18 10/12/18 History atorvastatin [Lipitor] 40 mg PO DAILY 08/04/18 10/12/18 History metoprolol succinate 25 mg PO BID 08/04/18 10/12/18 History metoprolol succinate 100 mg PO BID 08/04/18 10/12/18 History multivitamin [Multiple Vitamins] 1 tab PO DAILY 08/04/18 10/12/18 History clopidogrel 75 mg PO QAM #30 tab 08/06/18 10/12/18 Rx diclofenac sodium [Voltaren] 1 applic EXT QID #1 tube 08/06/18 10/12/18 Rx Patient History Social History marital status: Current Living Situation: Spouse Other Information That Helps Us Care for You: No Feels Safe at Home: Yes Safety Concerns: Feels Safe At This Time Smoking Status: Never smoker Do You Dip or Chew Tobacco: No Second Hand Exposure: No Tobacco Cessation Education Requested by Patient: No Hx Alcohol Use: No Hx Substance Use: No Beliefs That Will Affect Care: None Communication Ability: Effective Physical Exam 2 Vital Signs (Past 24 Hours): Last Vital Signs Temp 37.4 C 10/13/18 07:39 Pulse 113 H 10/13/18 07:39 Resp 18 10/13/18 07:39 BP 120/83 10/13/18 07:39 Pulse Ox 90 10/13/18 07:39 Her HEENT exam is grossly normal with and is atraumatic her neck is supple she is in no respiratory distress her heart rate is regular. Her abdomen is mildly distended with decreased bowel sounds and some mild tenderness to palpation on the left side. Her extremities are warm and well perfused her mucous membranes are dry Results & Data Diagnostic Findings I did review her CAT scan
--- NOTE | 2018-10-13 20:38 | Hospitalist Progress Note ---
Date of Service October 13, 2018 Assessment & Plan (1) Small bowel obstruction: - Starting to have multiple bowel movements with improvement in symptoms - Will obtain KUB to F/U - can allow sips/chips and possible advancement to clear liquids tomorrow but would advance slowly - Leukocytosis is resolved but will continue Zosyn at this time - Can hold on NGT placement given that she is now moving her bowels multiple times - Continue fluids with NSS at 80 mL/hr - Dilaudid PRN; Zofran/Phenergan PRN - Gen Surg following - appreciate recommendations or if there becomes a need for surgical intervention Present on Admission?: Yes (2) CAD (coronary artery disease): - Currently stable; no acute ischemic findings/symptoms - Holding ASA/Plavix at this time Present on Admission?: Yes (3) HTN (hypertension): - Resume Toprol XL 125 mg BID and confirmed this dose with her today - Was having some mild tachycardia so resumed given possibility of rebound (4) Hypertrophic cardiomyopathy: - No current signs of decompensation and will monitor - Toprol XL 125 mg BID Present on Admission?: Yes Subjective Patient reported no change throughout the day. Had a small emesis this AM. Was still hesitant to implement the NGT. However this evening has had multiple large bowel movements before this was placed and can hold on NGT as she is clinically feeling a lot better. KUB is ordered for reassessment Will monitor this evening and likely can start a clear diet but likely will do slow advancement Verbalizes no other complaints other then a little sleepy which is likely from pain medication vs nausea medications Constitutional: + fatigue; no fever and no chills Ear, Nose, Mouth, Throat: + dry mouth; no dysphagia Respiratory: no cough and no dyspnea Cardiovascular: no chest pain and no palpitations Gastrointestinal: + abdominal pain, + bloating, + nausea and + vomiting; no constipation and no diarrhea/loose stools Genitourinary (Female): no dysuria Physical Exam 2 Vital Signs (Past 24 Hours): Last Vital Signs Temp 37.4 C 10/13/18 07:39 Pulse 113 H 10/13/18 07:39 Resp 18 10/13/18 07:39 BP 120/83 10/13/18 07:39 Pulse Ox 90 10/13/18 07:39 Constitutional: well developed and well nourished; no acute distress Eyes: + anicteric sclerae Neck: trachea midline Respiratory: normal respiratory effort, lungs clear to auscultation Cardiovascular: Rate/Rhythm: regular rate and regular rhythm Extremities: no edema Gastrointestinal (Abdomen): Inspection/Auscultation: + abnormal bowel sounds ( hypoactive) Percussion/Palpation: abdomen soft; abdomen nontender Musculoskeletal: Head/Neck/Chest: normocephalic, head atraumatic and neck supple Skin: no rashes, warm and dry Neurologic: moves all extremities Psychiatric: A+Ox3, euthymic affect
--- NOTE | 2018-10-13 20:47 | XRay Report ---
XR KUB CLINICAL HISTORY: SBO F/U pain COMPARISON STUDY: CT 10/12/2018 FINDINGS: Nonobstructive bowel pattern. No secondary signs of free air. IMPRESSION: Nonobstructive bowel pattern. The above report was generated using voice recognition software. It may contain grammatical, syntax or spelling errors. Electronically signed by: Fan Wade M.D. 10/13/2018 8:46 PM
[2018-10-13] MEDS: METOPROLOL SUCC 25MG EXT REL TAB PO SCH (22:12)
[2018-10-14] MEDS: PIPERACILLIN/TAZOBACTAM 4.5 GM in DEXTROSE 5% 100 ML IV SCH ×3 (06:31→21:24)
--- NOTE | 2018-10-14 07:14 | Progress Note ---
Date of Service October 14, 2018 Assessment & Plan (1) SBO (small bowel obstruction): some improvement in bowel function- try sips likely has significant adhesions from prior surgery monitor progress- check labs Subjective had bowel movements- feels better- min pain/cramps no NG placed Physical Exam 2 Vital Signs (Past 24 Hours): Last Vital Signs Temp 36.8 C 10/13/18 23:53 Pulse 87 10/13/18 23:53 Resp 20 10/13/18 23:53 BP 109/71 10/13/18 23:53 Pulse Ox 93 10/13/18 23:53 decreased bowel sounds
[2018-10-14 07:25] LABS: Hematocrit (blood only) 41.5 % (37-47); Hemoglobin 14.1 g/dL (12.0-16.0); Mean Corpuscular Volume 92.6 fL (80-100); Mean Platelet Volume 11.4 fL (7.4-10.4); Platelet Count 241 K/uL (130-400); RDW Coefficient of Variation 13.3 % (11.5-14.5); RDW Standard Deviation 45.2 fL (36.4-46.3); Red Blood Count 4.48 M/uL (4.2-5.4); White Blood Count 12.07 K/uL (4.8-10.8)
[2018-10-14 07:33] LABS: INR 1.1 (0.9-1.1); Prothrombin Time 11.3 Seconds (9.0-12.0)
[2018-10-14 07:56] LABS: Albumin Level 2.9 gm/dl (3.4-5.0); BUN Creatinine Ratio 31.1 (10-20); Calcium 8.6 mg/dl (8.5-10.1); Creatinine Clr Calc Pharmacy 42.8 ml/min; Est GFR (African American) 53.9; Est GFR (Non-African American) 46.5; Magnesium 2.3 mg/dl (1.8-2.4); Potassium 3.8 mmol/L (3.5-5.1)
[2018-10-14 07:59] LABS: Albumin Globulin Ratio 0.7 (0.9-2); Bilirubin,Total 0.7 mg/dl (0.2-1); Globulin 4.1 gm/dl (2.5-4.0); Phosphorus 2.2 mg/dl (2.5-4.9)
[2018-10-14] MEDS: METOPROLOL SUCC 25MG EXT REL TAB PO SCH ×2 (08:05→20:35)
[2018-10-14] MEDS: DICLOFENAC SOD 1% GEL 100 GM TUBE EXT SCH ×4 (08:05→20:36)
[2018-10-14] MEDS: HEPARIN SOD 5,000 UNIT/0.5 ML VIAL SQ SCH ×2 (08:06→20:35)
[2018-10-14] MEDS: SODIUM CHLORIDE 0.9% 1000ML 1,000 ML IV SCH ×2 (08:08→20:30)
[2018-10-14 08:40] LABS: Basophils # (auto) 0.02 K/uL (0-0.2); Basophils % (auto) 0.2 %; Dohle Bodies 2+; Eosinophils # (auto) 0.03 K/uL (0-0.5); Eosinophils % (auto) 0.2 %; Immature Granulocytes # (auto) 0.06 K/uL (0.00-0.02); Immature Granulocytes % (auto) 0.5 %; Lymphocytes # (auto) 2.45 K/uL (1.2-3.4); Lymphocytes % (auto) 20.3 %; Monocytes # (auto) 1.38 K/uL (0.11-0.59); Monocytes % (auto) 11.4 %; Neutrophils # (auto) 8.13 K/uL (1.4-6.5); Neutrophils % (auto) 67.4 %; Toxic Vacuolation 1+
[2018-10-14] MEDS: METOPROLOL SUCC 50MG EXT REL TAB PO SCH ×2 (08:49→20:35)
[2018-10-14] MEDS: PANTOprazole 40 MG in SYRINGE 0 ML IV SCH (10:47)
--- NOTE | 2018-10-14 14:16 | Hospitalist Progress Note ---
Date of Service October 14, 2018 Assessment & Plan (1) Small bowel obstruction: - Starting to have multiple bowel movements with improvement in symptoms however bowels remain hypoactive - KUB this AM with nonobstructive bowel pattern - Sips/popsicles but will slowly advance diet forward - Will maintain Zosyn therapy at this time - Started having bowel movements prior to attempting NGT however will monitor for ongoing improvement as she still is hypoactive so may fully be resolved at this time and could ultimate still need this - Continue fluids with NSS at 80 mL/hr - Dilaudid PRN; Zofran/Phenergan PRN - Gen Surg following - appreciate recommendations or if there becomes a need for surgical intervention Present on Admission?: Yes (2) CAD (coronary artery disease): - Currently stable; no acute ischemic findings/symptoms - Holding ASA/Plavix at this time Present on Admission?: Yes (3) HTN (hypertension): - Resume Toprol XL 125 mg BID and confirmed this dose with her today - Was having some mild tachycardia so resumed given possibility of rebound Present on Admission?: Yes (4) Hypertrophic cardiomyopathy: - No current signs of decompensation and will monitor - Toprol XL 125 mg BID Present on Admission?: Yes Subjective Patient reports she is feeling somewhat better. Has had multiple bowel movements yesterday and another this AM before my visit. She states she still occ. gets a pain in the RUQ that is crampy but much improved. She currently denies nausea or further vomiting However BS still rather hypoactive this AM. So far tolerating some small sips and will advance diet slowly due to significant abd. surgeries. She states she really isn't bothered by not eating and doesn't feel that hungry just thirsty Constitutional: no fever and no chills Respiratory: no cough and no dyspnea Cardiovascular: no chest pain Gastrointestinal: + abdominal pain (intermittent/reducing cramping pain in RUQ) and + bloating; no nausea, no vomiting, no constipation and no diarrhea/loose stools Genitourinary (Female): no dysuria Integumentary: no rash Physical Exam 2 Vital Signs (Past 24 Hours): Last Vital Signs Temp 36.6 C 10/14/18 07:51 Pulse 73 10/14/18 07:51 Resp 20 10/14/18 07:51 BP 108/71 10/14/18 07:51 Pulse Ox 95 01/10/19 07:51 Constitutional: well developed and well nourished; no acute distress Eyes: + anicteric sclerae ENMT: Throat: uvula midline; no posterior oropharynx abnormality Neck: trachea midline Respiratory: normal respiratory effort, lungs clear to auscultation Cardiovascular: Rate/Rhythm: regular rate and regular rhythm Extremities: no edema Gastrointestinal (Abdomen): Inspection/Auscultation: + abdomen distended; + abnormal bowel sounds (hypoactive) Percussion/Palpation: abdomen soft; abdomen nontender Musculoskeletal: Head/Neck/Chest: normocephalic, head atraumatic and neck supple Skin: no rashes, warm and dry Neurologic: moves all extremities Psychiatric: A+Ox3, euthymic affect
[2018-10-15] MEDS: PIPERACILLIN/TAZOBACTAM 4.5 GM in DEXTROSE 5% 100 ML IV SCH ×2 (05:51→14:00)
[2018-10-15] MEDS: DICLOFENAC SOD 1% GEL 100 GM TUBE EXT SCH ×4 (05:54→20:04)
[2018-10-15] MEDS: METOPROLOL SUCC 50MG EXT REL TAB PO SCH ×2 (07:34→20:03)
[2018-10-15] MEDS: HEPARIN SOD 5,000 UNIT/0.5 ML VIAL SQ SCH ×2 (07:34→20:03)
[2018-10-15] MEDS: METOPROLOL SUCC 25MG EXT REL TAB PO SCH ×2 (07:35→20:04)
[2018-10-15] MEDS ORDERED: SENNA 8.8 MG/5 ML UDP PO PRN (07:50)
--- NOTE | 2018-10-15 07:54 | Progress Note ---
Date of Service October 15, 2018 Assessment & Plan (1) Small bowel obstruction: will adv to full liquids- add senna syrup- suspect she does have adhesions- hopefully will cont to progress- Dr Bey covering over weekend- If recurrent N/V- NG, supportive care OR Thu/Thu Subjective No emesis since adm with no NG- Positive bms tolerating clear liquids min pain/ cramps Physical Exam 2 Vital Signs (Past 24 Hours): Last Vital Signs Temp 36.3 C L 10/14/18 23:00 Pulse 62 10/15/18 07:30 Resp 18 10/14/18 23:00 BP 111/66 10/15/18 07:30 Pulse Ox 97 10/14/18 23:00 abd soft- some bowel sounds
[2018-10-15 08:53] LABS: Basophils # (auto) 0.02 K/uL (0-0.2); Basophils % (auto) 0.2 %; Eosinophils # (auto) 0.14 K/uL (0-0.5); Eosinophils % (auto) 1.2 %; Hematocrit (blood only) 37.3 % (37-47); Hemoglobin 12.4 g/dL (12.0-16.0); Immature Granulocytes # (auto) 0.07 K/uL (0.00-0.02); Immature Granulocytes % (auto) 0.6 %; Lymphocytes # (auto) 2.68 K/uL (1.2-3.4); Lymphocytes % (auto) 22.3 %; Mean Corpuscular Hgb Conc 33.2 g/dL (32-36); Mean Corpuscular Volume 92.8 fL (80-100); Mean Platelet Volume 10.8 fL (7.4-10.4); Monocytes # (auto) 0.82 K/uL (0.11-0.59); Monocytes % (auto) 6.8 %; Neutrophils # (auto) 8.28 K/uL (1.4-6.5); Neutrophils % (auto) 68.9 %; Platelet Count 203 K/uL (130-400); RDW Coefficient of Variation 13.4 % (11.5-14.5); RDW Standard Deviation 45.6 fL (36.4-46.3); Red Blood Count 4.02 M/uL (4.2-5.4); White Blood Count 12.01 K/uL (4.8-10.8)
[2018-10-15] MEDS: SODIUM CHLORIDE 0.9% 1000ML 1,000 ML IV SCH (09:29)
[2018-10-15 09:34] LABS: Prothrombin Time 10.3 Seconds (9.0-12.0)
[2018-10-15 09:53] LABS: Albumin Level 2.6 gm/dl (3.4-5.0); BUN Creatinine Ratio 21.2 (10-20); Calcium 8.2 mg/dl (8.5-10.1); Creatinine Clr Calc Pharmacy 50.8 ml/min; Est GFR (African American) 66.2; Est GFR (Non-African American) 57.1; Magnesium 2.2 mg/dl (1.8-2.4); Potassium 3.2 mmol/L (3.5-5.1)
[2018-10-15 09:58] LABS: Albumin Globulin Ratio 0.7 (0.9-2); Bilirubin,Total 0.3 mg/dl (0.2-1); Globulin 3.7 gm/dl (2.5-4.0); Total Protein 6.3 gm/dl (6.4-8.2)
[2018-10-15] MEDS ORDERED: POTASSIUM CHLORIDE 20 MEQ TABCR PO STA (10:16)
[2018-10-15] MEDS: PANTOprazole 40 MG in SYRINGE 0 ML IV SCH (11:09)
--- NOTE | 2018-10-15 13:55 | Hospitalist Progress Note ---
Date of Service October 15, 2018 Assessment & Plan (1) Small bowel obstruction: - Starting to have multiple bowel movements with improvement in symptoms however bowels remain hypoactive but slightly more audible today then yesterday - no further abdominal pain or N/V and tolerating full liquid diet at this time - Per Gen Surg - will need NGT placed if recurrent N/V and consideration for OR on Mon/Tu - Dilaudid PRN; Zofran/Phenergan PRN - Gen Surg following - appreciate recommendations or if there becomes a need for surgical intervention (2) CAD (coronary artery disease): - Currently stable; no acute ischemic findings/symptoms - Holding ASA/Plavix at this time just in case we would have to consider surgical intervention (3) HTN (hypertension): - Resume Toprol XL 125 mg BID and confirmed this dose (4) Hypertrophic cardiomyopathy: - No current signs of decompensation and will monitor - Toprol XL 125 mg BID Subjective Reports feeling better today and continues to have multiple bowel movements. Still slightly bloated but soft. Bowel sounds are improving but still not normoactive. Tolerating a full liquid diet at this time. States she has a little bit of swelling in her hands which she gets normally when she is getting IVF. Will stop fluids at this time. Constitutional: no fever and no chills Respiratory: no cough and no dyspnea Cardiovascular: no chest pain Gastrointestinal: no abdominal pain, no nausea, no vomiting, no constipation and no diarrhea/loose stools Genitourinary (Female): no dysuria Physical Exam 2 Vital Signs (Past 24 Hours): Last Vital Signs Temp 36.5 C 10/15/18 08:00 Pulse 73 10/15/18 08:00 Resp 20 10/15/18 08:00 BP 112/70 10/15/18 08:00 Pulse Ox 95 10/15/18 08:00 Constitutional: well developed and well nourished; no acute distress Eyes: + anicteric sclerae ENMT: Throat: uvula midline; no posterior oropharynx abnormality Neck: trachea midline Respiratory: normal respiratory effort, lungs clear to auscultation Cardiovascular: Rate/Rhythm: regular rate and regular rhythm Extremities: no edema Gastrointestinal (Abdomen): Inspection/Auscultation: + abdomen distended; + abnormal bowel sounds (hypoactive but increasing from previous exam) Percussion/Palpation: abdomen soft; abdomen nontender Musculoskeletal: Head/Neck/Chest: normocephalic, head atraumatic and neck supple Skin: no rashes, warm and dry Neurologic: moves all extremities Psychiatric: A+Ox3, euthymic affect
[2018-10-16] MEDS: DICLOFENAC SOD 1% GEL 100 GM TUBE EXT SCH ×4 (07:58→20:02)
[2018-10-16] MEDS: METOPROLOL SUCC 25MG EXT REL TAB PO SCH ×2 (07:59→20:01)
[2018-10-16] MEDS: HEPARIN SOD 5,000 UNIT/0.5 ML VIAL SQ SCH ×2 (07:59→20:02)
[2018-10-16] MEDS: METOPROLOL SUCC 50MG EXT REL TAB PO SCH ×2 (07:59→20:01)
[2018-10-16 09:27] LABS: Magnesium 2.1 mg/dl (1.8-2.4)
--- NOTE | 2018-10-16 10:29 | Surgery Progress Note ---
Date of Service October 16, 2018 Assessment & Plan (1) Small bowel obstruction: Appears to be resolving. OK to advance to low fiber diet today. Present on Admission?: Yes Subjective Sitting in chair. Had full liquids yesterday and tolerated well. No nausea or vomiting. Bowels are still working. No abdominal pain but still feels "sore" in the abdomen. Review of Systems All systems reviewed & are unremarkable except as noted in HPI & below Physical Exam 2 Vital Signs (Past 24 Hours): Last Vital Signs Temp 36.7 C 10/16/18 07:00 Pulse 62 10/16/18 07:58 Resp 18 10/16/18 07:00 BP 126/78 10/16/18 07:00 Pulse Ox 97 10/16/18 07:00 Constitutional: WD/WN, vitals as above Gastrointestinal (Abdomen): normal bowel sounds, soft, nontender, no hepatosplenomegaly Neurologic: CN's II-XI intact bilaterally and awake Psychiatric: A+Ox3, euthymic affect
[2018-10-16] MEDS: VERAPAMIL HCL 240 MG TABCR PO SCH (14:15)
--- NOTE | 2018-10-16 16:00 | Hospitalist Progress Note ---
Date of Service October 16, 2018 Assessment & Plan (1) Small bowel obstruction: - Continues to have bowel movements and passing flatus. Tolerating a low fiber diet at this time - Given her extensive surgical history and rather recent SBO prior to this will monitor today while on a low fiber diet - Gen Surg following - appreciate input Disposition: Possible D/C tomorrow if tolerates diet unless any concerns from surgical team Present on Admission?: Yes (2) CAD (coronary artery disease): - Currently stable; no acute ischemic findings/symptoms - Still holding ASA/Plavix at this time just in case we would have to consider surgical intervention however no further symptoms have developed and likely can restart tomorrow Present on Admission?: Yes (3) HTN (hypertension): - Continue Toprol XL 125 mg BID and Verapamil 240 mg daily Present on Admission?: Yes (4) Hypertrophic cardiomyopathy: - No current signs of decompensation and will monitor - Toprol XL 125 mg BID; Verapamil 240 mg daily Present on Admission?: Yes Subjective Reports she feels overall well today. Continues to have bowel movements and no abd pain or N/V. Tolerating a low fiber diet during my visit. Only complaint is she feels like her heart is racing faster then normal when she is up ambulating. She states she is on two cardiac medications but couldn't remember the other one. Per her pharmacy she is actually on Verapamil as well and she says that sound familiar. Constitutional: no fever and no chills Respiratory: no cough, no dyspnea and no dyspnea on exertion Cardiovascular: no chest pain and no palpitations Additional Comments: She feels like her heart rates are faster then normal when ambulating Gastrointestinal: no abdominal pain, no nausea, no vomiting, no constipation, no diarrhea/loose stools, no blood in stools and no melena Genitourinary (Female): no dysuria Integumentary: no rash Physical Exam 2 Vital Signs (Past 24 Hours): Last Vital Signs Temp 36.6 C 10/16/18 14:14 Pulse 60 10/16/18 14:14 Resp 18 10/16/18 14:14 BP 139/82 10/16/18 14:14 Pulse Ox 97 10/16/18 14:14 Constitutional: well developed and well nourished; no acute distress Eyes: + anicteric sclerae ENMT: Throat: uvula midline; no posterior oropharynx abnormality Neck: trachea midline Respiratory: normal respiratory effort, lungs clear to auscultation Cardiovascular: Rate/Rhythm: regular rate and regular rhythm Extremities: no edema Gastrointestinal (Abdomen): Inspection/Auscultation: normal bowel sounds Percussion/Palpation: abdomen soft; abdomen nontender Musculoskeletal: Head/Neck/Chest: normocephalic, head atraumatic and neck supple Skin: no rashes, warm and dry Neurologic: moves all extremities Psychiatric: A+Ox3, euthymic affect
[2018-10-17 05:55] LABS: Hematocrit (blood only) 35.7 % (37-47); Mean Corpuscular Hgb Conc 33.6 g/dL (32-36); Mean Corpuscular Volume 91.8 fL (80-100); Platelet Count 235 K/uL (130-400); RDW Coefficient of Variation 13.5 % (11.5-14.5); RDW Standard Deviation 45.2 fL (36.4-46.3); Red Blood Count 3.89 M/uL (4.2-5.4); White Blood Count 12.95 K/uL (4.8-10.8)
[2018-10-17 06:44] LABS: BUN Creatinine Ratio 17.4 (10-20); Blood Urea Nitrogen 13 mg/dl (7-18); Calcium 8.4 mg/dl (8.5-10.1); Carbon Dioxide 25 mmol/L (21-32); Chloride 110 mmol/L (98-107); Creatinine Clr Calc Pharmacy 68.4 ml/min; Est GFR (African American) 94.9; Est GFR (Non-African American) 81.9; Glucose 86 mg/dl (70-99); Sodium 139 mmol/L (136-145)
[2018-10-17] MEDS: METOPROLOL SUCC 50MG EXT REL TAB PO SCH ×2 (07:49→20:34)
[2018-10-17] MEDS: VERAPAMIL HCL 240 MG TABCR PO SCH (07:49)
[2018-10-17] MEDS: METOPROLOL SUCC 25MG EXT REL TAB PO SCH ×2 (07:49→20:34)
[2018-10-17] MEDS: HEPARIN SOD 5,000 UNIT/0.5 ML VIAL SQ SCH ×2 (07:49→20:34)
[2018-10-17] MEDS: DICLOFENAC SOD 1% GEL 100 GM TUBE EXT SCH ×4 (07:49→20:35)
[2018-10-17 09:52] LABS: Appearance Urine Clear (Clear); Bacteria Urine Automated Negative (Negative); Bilirubin Urine Negative (Negative); Color Urine Yellow; Epithelial Cell Urine Auto >30 /lpf (0-5); Glucose Urine UA Negative (Negative); Ketones Urine Negative (Negative); Leukocyte Esterase Urine 2+ (Negative); Nitrite Urine Negative (Negative); Protein Urine Negative (Negative); Specific Gravity Urine 1.008 (1.000-1.030); Urobilinogen Urine Negative (Negative)
--- NOTE | 2018-10-17 09:53 | XRay Report ---
KUB CLINICAL HISTORY: Abdominal Pain; Resolved SBO COMPARISON STUDY: CT of the abdomen and pelvis October 2018 and KUB October 13, 2018. FINDINGS: Incidental note is made of calcified granulomas within the liver and spleen and a periphera lly calcified splenic lesion. Pacer leads are partially imaged. There are cholecystectomy clips. A fe w loops of mildly dilated gas-filled small bowel within the right mid abdomen are noted. Gaseous dist ention has slightly increased since prior KUB. IMPRESSION: Slight increase in mild gaseous distention of several right abdominal small bowel loops which favors a small bowel obstruction. Electronically signed by: Steve Ellington M.D. 10/17/2018 9:51 AM
--- NOTE | 2018-10-17 10:45 | Hospitalist Progress Note ---
Date of Service October 17, 2018 Assessment & Plan (1) Small bowel obstruction: - Clinically appears resolved - is moving bowels but states today she is not really passing flatus but did have a BM this AM - no N/V - States she intermittently gets a soreness in the RLQ and some what into suprapubic region and she notices the pressure more when she is bearing down to urinate - UA unremarkable - she does continue to have a slight elevated WBC - Obtain F/U KUB which supports a SBO which was not present on KUB from the other day - Will reduce down to clear liquids at this time and will discuss with Gen Surg - Gen Surg following - appreciate assistance (2) CAD (coronary artery disease): - Currently stable; no acute ischemic findings/symptoms - Still holding ASA/Plavix at this time just in case we would have to consider surgical intervention (3) HTN (hypertension): - Continue Toprol XL 125 mg BID and Verapamil 240 mg daily (4) Hypertrophic cardiomyopathy: - No current signs of decompensation and will monitor - Toprol XL 125 mg BID; Verapamil 240 mg daily Subjective Patient reports she is feeling better today. States she has some pressure when she urinates in the RLQ. Checked UA and was unremarkable Did a F/U KUB which supports a SBO again which was not present of a KUB from a couple days ago. She states she has had multiple bowel movements over the past couple days and denies N/V. She states she had the sensation of a faster heart rate yesterday when ambulating which has since resolved as she is actually on Verapamil as well. She continues to have a slightly elevated WBC. She states she is also having some swelling in the B/L hands and recommend elevation. Constitutional: no fever and no chills Respiratory: no cough and no dyspnea Cardiovascular: + edema (b/l hands); no chest pain and no palpitations Gastrointestinal: + abdominal pain (minimal in RLQ/suprapubic - pressure sensation noted with urination); no nausea, no vomiting, no constipation and no diarrhea/loose stools Genitourinary (Female): + problem reported (pressure sensation in the RLQ and slightly in suprapubic region when urinating but states doesn't feel like burning); no dysuria and no difficulty urinating Musculoskeletal: + swelling (b/l hands) Integumentary: no rash Physical Exam 2 Vital Signs (Past 24 Hours): Last Vital Signs Temp 36.6 C 10/17/18 07:16 Pulse 60 10/17/18 07:16 Resp 18 10/17/18 07:16 BP 155/83 H 10/17/18 07:16 Pulse Ox 99 10/17/18 07:16 Constitutional: well developed and well nourished; no acute distress Eyes: + anicteric sclerae ENMT: Throat: uvula midline; no posterior oropharynx abnormality Neck: trachea midline Respiratory: normal respiratory effort, lungs clear to auscultation Cardiovascular: Rate/Rhythm: regular rate and regular rhythm Extremities: + edema (non-pitting edema of b/l hands (slight); trace pitting edema of B/L legs) Gastrointestinal (Abdomen): Inspection/Auscultation: normal bowel sounds Percussion/Palpation: abdomen soft; abdomen nontender Musculoskeletal: Head/Neck/Chest: normocephalic, head atraumatic and neck supple Skin: no rashes, warm and dry Neurologic: moves all extremities Psychiatric: A+Ox3, euthymic affect
--- NOTE | 2018-10-17 11:04 | Surgery Progress Note ---
Date of Service October 17, 2018 Assessment & Plan (1) Small bowel obstruction: Small bowel obstruction - likely resolving but she has mild tenderness in right lower abdomen today with increase in gaseous distention of bowel loops in this area. However is tolerating a low fiber diet and was having bowel movements yesterday. She is concerned as she has not had a bowel movement today. Will keep in hospital to monitor and make sure bowels continue to work. Continue low fiber diet. Subjective Sitting in chair. Had low fiber diet yesterday and tolerated well. No nausea or vomiting. Was having a bowel movement every time she went to the bathroom but none today yet. Still "sore" in the abdomen, mildly worse in the right lower quadrant. AXR done shows gas filled loops in the right lower quadrant with mild increase in gaseous distention since last exam. Physical Exam 2 Vital Signs (Past 24 Hours): Last Vital Signs Temp 36.6 C 10/17/18 07:16 Pulse 60 10/17/18 07:16 Resp 18 10/17/18 07:16 BP 155/83 H 10/17/18 07:16 Pulse Ox 99 10/17/18 07:16 Constitutional: WD/WN, vitals as above Gastrointestinal (Abdomen): Inspection/Auscultation: abdomen normal to inspection and normal bowel sounds Percussion/Palpation: + abdomen tender ( mild in the right lower abdomen) and abdomen soft; no guarding Neurologic: CN's II-XI intact bilaterally and awake Psychiatric: A+Ox3, euthymic affect
[2018-10-17] MEDS: LORazepam 0.5 MG TAB PO SCH (20:34)
--- NOTE | 2018-10-18 06:20 | Progress Note ---
Date of Service October 18, 2018 Assessment & Plan (1) SBO (small bowel obstruction): possibly mild improvement- partial sbo likely from adhesions will check CT w/ contrast- this am- assess transit- possible d/c later today if ok- Subjective feels ok- passed some flatus, some belching, had bm no emesis Physical Exam 2 Vital Signs (Past 24 Hours): Last Vital Signs Temp 37.1 C 10/17/18 22:51 Pulse 68 10/17/18 22:51 Resp 18 10/17/18 22:51 BP 117/73 10/17/18 22:51 Pulse Ox 97 10/17/18 22:51 mild distention, some bs, min tenderness
[2018-10-18] MEDS: DICLOFENAC SOD 1% GEL 100 GM TUBE EXT SCH ×4 (07:37→21:21)
[2018-10-18] MEDS: VERAPAMIL HCL 240 MG TABCR PO SCH (07:37)
[2018-10-18] MEDS: METOPROLOL SUCC 50MG EXT REL TAB PO SCH ×2 (07:37→21:17)
[2018-10-18] MEDS: METOPROLOL SUCC 25MG EXT REL TAB PO SCH ×2 (07:37→21:17)
[2018-10-18] MEDS: HEPARIN SOD 5,000 UNIT/0.5 ML VIAL SQ SCH ×3 (07:38→21:29)
--- NOTE | 2018-10-18 09:22 | XRay Report ---
XR KUB CLINICAL HISTORY: Small bowel obstruction COMPARISON STUDY: 10/17/2018 FINDINGS: There are surgical clips within the right upper quadrant consistent with a prior cholecyste ctomy. There is a stable left upper quadrant eggshell calcification. There is contrast within the sma ll bowel. There is mild small bowel dilatation. There is a relative paucity of colonic gas. The findi ngs are suggestive of a small bowel obstruction. IMPRESSION: Persistent small bowel dilatation with bowel loops measuring up to 56 mm. Electronically signed by: Andrew Calderon M.D. 10/18/2018 9:21 AM
[2018-10-18] MEDS ORDERED: IOVERSOL 100ml IV PRN (09:58)
--- NOTE | 2018-10-18 10:23 | CT Scan Report ---
CT abd pelvis oral and IV con CLINICAL HISTORY: Small bowel obstruction COMPARISON STUDY: 10/12/2018 TECHNIQUE: The patient was scanned following administration of dilute oral contrast, and in a dynamic helical fashion during intravenous administration 94 cc of Optiray 320. A dose lowering technique w as utilized adhering to the principles of ALARA. CT DOSE: 1390.63 mGy.cm FINDINGS: Lower chest: The heart is normal in size and configuration, without pericardial effusion. The lung ba ses and pleural spaces are clear. Liver: No focal hepatic masses are visualized. The portal vein and hepatic veins appear patent. There are scattered calcified granulomas. Gallbladder: Surgically absent Spleen: There is a stable 2 cm rim calcified cystic lesion. There are scattered granulomas. Pancreas: Unremarkable. Adrenal glands: Unremarkable. Kidneys: There is symmetric renal cortical enhancement. The kidneys are normal in size without hydron ephrosis. 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 There is contrast present throughout the small bowel, and there is contrast within t he sigmoid and rectum. There are borderline dilated small bowel loops with scattered air-fluid levels . The distal small bowel is of normal caliber. The small bowel is less dilated than on the prior stud y, and the previously identified small bowel feces sign has resolved. The findings are consistent wit h a resolving small bowel obstruction. Peritoneum: There is no intraperitoneal free air or abdominal ascites. Vasculature: The abdominal aorta is normal in course and caliber. Adenopathy: None. Pelvic viscera: The uterus is surgically absent. Skeletal structures: No destructive osseous lesions are seen. IMPRESSION: 1. Resolving small bowel obstruction. Decreasing small bowel dilatation. Contrast is visualized to th e level the rectum. 2. No evidence of free air 3. No acute inflammatory changes 4. Post surgical changes of a subtotal colectomy with ileal colonic anastomosis the level of the sigm oid Electronically signed by: Andrew Calderon M.D. 10/18/2018 10:22 AM
[2018-10-18] MEDS: LORazepam 0.5 MG TAB PO SCH (21:21)
--- NOTE | 2018-10-19 06:28 | Progress Note ---
Date of Service October 19, 2018 Assessment & Plan (1) SBO (small bowel obstruction): will give info for low fiber diet- pt to call office for f/u d/c home today if ok with med team Subjective seems to be doing ok Physical Exam 2 Vital Signs (Past 24 Hours): Last Vital Signs Temp 36.7 C 10/18/18 23:17 Pulse 64 10/18/18 23:17 Resp 18 10/18/18 23:17 BP 137/80 10/18/18 23:17 Pulse Ox 96 10/18/18 23:17 abd soft
--- NOTE | 2018-10-19 07:43 | Hospitalist Progress Note ---
Date of Service October 18, 2018 Assessment & Plan (1) Small bowel obstruction: - Agree that clinically appears resolved -However, just recently increased her diet today. -Will monitor patient overnight, if she continues to feel well will discharge in AM -I did discuss with patient that this may recur. - States she intermittently gets a soreness in the RLQ and some what into suprapubic region and she notices the pressure more when she is bearing down to urinate - UA unremarkable - she does continue to have a slight elevated WBC - repeated F/U KUB which supports a SBO which was not present on KUB from the other day CT scan of abd/pelvis reviewed which showed improvement. - Gen Surg following - appreciate assistance (2) CAD (coronary artery disease): - Currently stable; no acute ischemic findings/symptoms - Still holding ASA/Plavix at this time just in case we would have to consider surgical intervention -will resume at discharge. (3) HTN (hypertension): - Continue Toprol XL 125 mg BID and Verapamil 240 mg daily (4) Hypertrophic cardiomyopathy: - No current signs of decompensation and will monitor - Toprol XL 125 mg BID; Verapamil 240 mg daily Spent 35 minutes in management of patient. Chart review, encounter with patient, and discussion with specialist. Subjective Patient reports feeling well today. She continues to tolerate her diet and is having bowel movements. Patient states however that eventhough she has been on a low fiber diet prior, she only began it today as she was having the clear liquid portion of her diet. She states that she is not sure if she wants to go home today as she is worried that she may return. Ear, Nose, Mouth, Throat: + dry mouth; no dysphagia Cardiovascular: + edema (b/l hands); no chest pain and no palpitations Gastrointestinal: + abdominal pain (minimal in RLQ/suprapubic - pressure sensation noted with urination); no nausea, no vomiting, no constipation and no diarrhea/loose stools Genitourinary (Female): + problem reported (pressure sensation in the RLQ and slightly in suprapubic region when urinating but states doesn't feel like burning); no dysuria and no difficulty urinating Musculoskeletal: + swelling (b/l hands) Physical Exam 2 Vital Signs (Past 24 Hours): Last Vital Signs Temp 36.7 C 10/18/18 23:17 Pulse 64 10/18/18 23:17 Resp 18 10/18/18 23:17 BP 137/80 10/18/18 23:17 Pulse Ox 96 10/18/18 23:17 Physical Exam: Constitutional: well developed and well nourished; no acute distress Eyes: + anicteric sclerae ENMT: Throat: uvula midline; no posterior oropharynx abnormality Neck: trachea midline Respiratory: normal respiratory effort, lungs clear to auscultation Cardiovascular: Rate/Rhythm: regular rate and regular rhythm Extremities: + edema (non-pitting edema of b/l hands (slight); trace pitting edema of B/L legs) Gastrointestinal (Abdomen): Inspection/Auscultation: normal bowel sounds Percussion/Palpation: abdomen soft; abdomen nontender Musculoskeletal: Head/Neck/Chest: normocephalic, head atraumatic and neck supple Skin: no rashes, warm and dry Neurologic: moves all extremities Psychiatric: A+Ox3, euthymic affect
[2018-10-19 07:50] VITALS: TEMP 97.7; O2SAT 97
[2018-10-19] MEDS: VERAPAMIL HCL 240 MG TABCR PO SCH (07:59)
[2018-10-19] MEDS: METOPROLOL SUCC 25MG EXT REL TAB PO SCH (07:59)
[2018-10-19] MEDS: DICLOFENAC SOD 1% GEL 100 GM TUBE EXT SCH (07:59)
[2018-10-19] MEDS: HEPARIN SOD 5,000 UNIT/0.5 ML VIAL SQ SCH (07:59)
[2018-10-19] MEDS: METOPROLOL SUCC 50MG EXT REL TAB PO SCH (07:59)
[2018-10-19 10:59] VITALS: BP 137/80; PULSE 73
--- NOTE | 2018-10-20 13:12 | Discharge Summary ---
Date of Service October 19, 2018 Admission HPI Per Admitting Provider The patient is a 73-year-old female with a past medical history including recurrent partial small bowel obstructions, with most recent admission at [facility] from August 04 - August 05, resolved spontaneously with conservative treatment. These symptoms began yesterday morning upon awakening. She tried to restrict her oral intake significantly to both liquids and solids, however, overnight tonight, her symptoms worsened, and she presented to the emergency department for assessment. Principal Diagnosis Small Bowel Obstruction Discharge Exam Constitutional: well developed and well nourished; no acute distress Eyes: + anicteric sclerae ENMT: Throat: uvula midline; no posterior oropharynx abnormality Neck: trachea midline Respiratory: normal respiratory effort, lungs clear to auscultation Cardiovascular: Rate/Rhythm: regular rate and regular rhythm Extremities: + edema (non-pitting edema of b/l hands (slight); trace pitting edema of B/L legs) Gastrointestinal (Abdomen): Inspection/Auscultation: normal bowel sounds Percussion/Palpation: abdomen soft; abdomen nontender Musculoskeletal: Head/Neck/Chest: normocephalic, head atraumatic and neck supple Skin: no rashes, warm and dry Neurologic: moves all extremities Psychiatric: A+Ox3, euthymic affect Discharge Data Allergies Allergy/AdvReac Type Severity Reaction Status Date / Time codeine AdvReac Mild CHEST Verified 10/12/18 04:52 PRESSURE Consultations 10/12/18 07:01 Consult Case Management - Discharge Planning Routine 10/13/18 15:24 Consult General Surgery Routine Ordered Studies 10/12/18 17:46 CT abd pelvis wo con Urgent 10/18/18 06:16 CT abd pelvis oral and IV con Urgent Hospital Course (1) Small bowel obstruction: - Agree that clinically appears resolved -However, just recently increased her diet today. -Will monitor patient overnight, if she continues to feel well will discharge in AM -I did discuss with patient that this may recur. - States she intermittently gets a soreness in the RLQ and some what into suprapubic region and she notices the pressure more when she is bearing down to urinate - UA unremarkable - she does continue to have a slight elevated WBC - repeated F/U KUB which supports a SBO which was not present on KUB from the other day CT scan of abd/pelvis reviewed which showed improvement. - Gen Surg following - appreciate assistance On day of discharge, patient continued to tolerate her diet. Patient had bowel movelments. Her pain had subsided. (2) CAD (coronary artery disease): - Currently stable; no acute ischemic findings/symptoms - Still held ASA/Plavix during this hospital stay just in case we would have to consider surgical intervention -will resume at discharge. (3) HTN (hypertension): - Continue Toprol XL 125 mg BID and Verapamil 240 mg daily (4) Hypertrophic cardiomyopathy: - No current signs of decompensation and will monitor - Toprol XL 125 mg BID; Verapamil 240 mg daily . Total Time Total Time Spent Total Time Spent (In Minutes): 35 Total Time Includes: Examination of the Patient, Discharge Planning and Medication Reconciliation Discharge Plan Discharge Items Patient Disposition: Home - Self-Care Reason For Visit: RECURRENT SBO Discharge Diagnosis: Recurrent Small Bowel Obstruction Discharge Goals: Decrease discomfort and Improve function Activity: Resume your previous activity Non-emergency contact: Primary Care Provider Call non-emergency contact if: your symptoms worsen Follow-up/Referrals: Charo Chatterjee PA-C [Primary Care Provider] - 10/20/18 2:30 pm (Please, follow up at [facility] Chatterjee's office with her associate, Mary BAUM, on ThursdayOctober 20 at 2:30 pm. *If you need to change this appointment, call the office at [phone].) Diet: Heart Healthy, Low Fiber and Low Sodium (2gm) Addtl Provider Instructions: call Dr Tuttle's office [phone] for follow up appt Prescriptions: Continue verapamil 240 mg Capsule,Ext Rel. Pellets 24 Hr 240 mg PO QAM RF: 0 atorvastatin [Lipitor] 40 mg Tablet 40 mg PO DAILY RF: 0 allopurinol 100 mg Tablet 100 mg PO DAILY RF: 0 aspirin 81 mg Tablet,Delayed Release (Dr/Ec) 81 mg PO DAILY RF: 0 multivitamin [Multiple Vitamins] Tablet 1 tab PO DAILY RF: 0 metoprolol succinate 100 mg Tablet Extended Release 24 Hr 100 mg PO BID RF: 0 metoprolol succinate 25 mg Tablet Extended Release 24 Hr 25 mg PO BID RF: 0 clopidogrel 75 mg Tablet 75 mg PO QAM Qty: 30 RF: 5 diclofenac sodium [Voltaren] 1 % Gel 1 applic EXT QID Qty: 1 RF: 0 Visit Report Forms: [facility] [employer] [facility] Stand-Alone Forms: Call Back Authorization, [facility] [employer] [facility] Discharge Orders: Discharge Order (Routine); Ordered 10/19/18 Ordered By: Yusef Lenz Admission Data Admit Date/Time: 10/12/18 05:53 Attending Provider: Yusef Lenz Admit Provider: Bennett Decker Primary Care Provider: Charo Cahtterjee Other Providers: [place] Tuttle Service: Medical Other Interventions: Discharge Summary Assessment (RN) Last Done: 10/19/18 10:58 DC Date/Time DO NOT enter until pt leaves facility: 10/19/18 11:22
== END 2018-10-19 11:22 | disposition home or self-care (01) | DRG 389 ==
LOC: ED 04:10 → SUATTDRO 05:53 → 2S 05:53 → 2W 16:29
DX: E86.0 Dehydration; K56.51 Intestinal adhesions [bands], with partial obstruction; Z79.02 Long term (current) use of antithrombotics/antiplatelets; Z79.899 Other long term (current) drug therapy; I25.10 Atherosclerotic heart disease of native coronary artery without angina pectoris; I10 Essential (primary) hypertension; I42.2 Other hypertrophic cardiomyopathy; Z88.5 Allergy status to narcotic agent; Z79.82 Long term (current) use of aspirin; Z90.49 Acquired absence of other specified parts of digestive tract